=== PATIENT | male | born 1960 | race African-American/Black ===

== ENCOUNTER 2020-10-24 11:31 | Inpatient (IN) | payer OTHER ==
[2020-10-24 13:29] VITALS: BMI 27.3
[2020-10-24] MEDS ORDERED: ACETAMINOPHEN 325 MG TABLET (FP) PO PRN ×2 (13:30)
[2020-10-24] MEDS ORDERED: MAGNESIUM HYDROX 2400MG/30ML ORAL SUSPENSION 30 ML CUP PO PRN (13:30)
[2020-10-24] MEDS ORDERED: NICOTINE POLACRILEX 2 MG GUM BUC PRN (13:30)
[2020-10-24] MEDS ORDERED: ONDANSETRON *ODT* 4 MG TABLET SL PRN (13:30)
[2020-10-24] MEDS ORDERED: METHOCARBAMOL 500 MG TABLET PO PRN (13:30)
[2020-10-24] MEDS ORDERED: MENTHOL/PHENOL 1 EACH UD MM PRN (13:30)
[2020-10-24] MEDS ORDERED: MAGNESIUM CITRATE 300 ML BOTTLE PO PRN (13:30)
[2020-10-24] MEDS ORDERED: IBUPROFEN 400 MG TABLET (FP) PO PRN (13:30)
[2020-10-24] MEDS ORDERED: MAG HYDROX/AL HYDROX/SIMETH 30 ML UNIT-DOSE CUP PO PRN (13:30)
[2020-10-24 14:24] LABS: HEMATOCRIT 43.2 % (35.4-49); HEMOGLOBIN 14.1 GM/dL (11.7-16.9); MCHC 32.7 g/dl (32.0-35.9); MEAN CELL VOLUME 91.9 fl (80-96); MEAN PLT VOLUME 8.5 fl (7.5-11.1); PLATELET COUNT 248 K/MM3 (134-434); RDW 14.7 % (11.9-15.9); WHITE BLOOD COUNT 5.7 K/mm3 (4.0-10.0)
[2020-10-24 14:26] LABS: POTASSIUM 3.8 mmol/L (3.5-5.1)
[2020-10-24 14:32] LABS: CALCIUM 9.2 mg/dL (8.5-10.1); CREATININE 1.3 mg/dL (0.55-1.3)
[2020-10-24 14:33] LABS: BILIRUBIN,TOTAL 0.5 mg/dL (0.2-1); TOT PROT 7.6 g/dl (6.4-8.2)
[2020-10-24] MEDS: ASPIRIN COATED 81 MG TABLET.EC PO SCH (15:05)
[2020-10-24] MEDS: chlordiazePOXIDE HCL 25 MG CAPSULE PO PRN ×2 (15:06→20:03)
[2020-10-24] MEDS: hydrOXYzine PAMOATE 25 MG CAPSULE (FP) PO SCH ×3 (15:06→22:12)
[2020-10-24] MEDS: LOSARTAN POTASSIUM 25 MG TABLET PO SCH (15:07)
[2020-10-24] MEDS: chlordiazePOXIDE HCL 25 MG CAPSULE PO SCH ×2 (18:12→22:12)
[2020-10-24] MEDS ORDERED: MELATONIN 5 MG TABLETS PO SCH (22:00)
[2020-10-24] MEDS: FAMOTIDINE 10 MG TABLET PO SCH (22:12)
[2020-10-24] MEDS: ATORVASTATIN CA 80 MG TABLET (FP) PO SCH (22:12)
[2020-10-24] MEDS: THIAMINE HCL 100 MG TABLET (FP) PO SCH (22:12)
[2020-10-24] MEDS: METOPROLOL TARTRATE 25 MG TABLET (FP) PO SCH (22:13)
[2020-10-25] MEDS: chlordiazePOXIDE HCL 25 MG CAPSULE PO SCH ×5 (05:30→22:42)
[2020-10-25] MEDS: hydrOXYzine PAMOATE 25 MG CAPSULE (FP) PO SCH ×5 (05:30→22:42)
[2020-10-25] MEDS: CLOPIDOGREL BISULFATE 75 MG TABLET (FP) PO SCH (06:52)
[2020-10-25] MEDS: ASPIRIN COATED 81 MG TABLET.EC PO SCH (10:16)
[2020-10-25] MEDS: METOPROLOL TARTRATE 25 MG TABLET (FP) PO SCH ×2 (10:16→22:41)
[2020-10-25] MEDS: PRENATAL VITAMINS W/ FOLIC ACID TABLET (FP) PO SCH (10:16)
[2020-10-25] MEDS: LOSARTAN POTASSIUM 25 MG TABLET PO SCH (10:43)
[2020-10-25] MEDS: FAMOTIDINE 10 MG TABLET PO SCH ×2 (10:43→22:41)
[2020-10-25] MEDS: LIDOCAINE 5% TOPICAL PATCH TP SCH (10:44)
[2020-10-25] MEDS: POLYETHYLENE GLYCOL 3350 119 GM BTL PO SCH (19:43)
[2020-10-25] MEDS ORDERED: LIDOCAINE PATCH REMOVAL MC SCH (22:00)
[2020-10-25] MEDS ORDERED: SUVOREXANT 10 MG TABLET PO PRN (22:00)
[2020-10-25] MEDS: LIDOCAINE PATCH REMOVAL MC SCH (22:41)
[2020-10-25] MEDS: THIAMINE HCL 100 MG TABLET (FP) PO SCH (22:42)
[2020-10-25] MEDS: ATORVASTATIN CA 80 MG TABLET (FP) PO SCH (22:42)
[2020-10-26] MEDS: chlordiazePOXIDE HCL 25 MG CAPSULE PO SCH ×4 (05:05→22:28)
[2020-10-26] MEDS: hydrOXYzine PAMOATE 25 MG CAPSULE (FP) PO SCH ×5 (05:05→22:47)
[2020-10-26] MEDS: CLOPIDOGREL BISULFATE 75 MG TABLET (FP) PO SCH (06:11)
[2020-10-26] MEDS: METOPROLOL TARTRATE 25 MG TABLET (FP) PO SCH ×2 (10:03→22:28)
[2020-10-26] MEDS: LOSARTAN POTASSIUM 25 MG TABLET PO SCH (10:03)
[2020-10-26] MEDS: PRENATAL VITAMINS W/ FOLIC ACID TABLET (FP) PO SCH (10:03)
[2020-10-26] MEDS: FAMOTIDINE 10 MG TABLET PO SCH ×2 (10:03→22:29)
[2020-10-26] MEDS: ASPIRIN COATED 81 MG TABLET.EC PO SCH (10:03)
[2020-10-26] MEDS: LIDOCAINE 5% TOPICAL PATCH TP SCH (10:03)
[2020-10-26] MEDS: POLYETHYLENE GLYCOL 3350 119 GM BTL PO SCH (12:27)
[2020-10-26] MEDS: BISMUTH SUBSALICYLATE 524 MG/30 ML UD PO PRN (18:03)
[2020-10-26] MEDS: THIAMINE HCL 100 MG TABLET (FP) PO SCH (22:28)
[2020-10-26] MEDS: ATORVASTATIN CA 80 MG TABLET (FP) PO SCH (22:28)
[2020-10-26] MEDS: LIDOCAINE PATCH REMOVAL MC SCH (22:29)
[2020-10-27] MEDS ORDERED: chlordiazePOXIDE HCL 10 MG CAPSULE PO PRN
[2020-10-27] MEDS: chlordiazePOXIDE HCL 10 MG CAPSULE PO SCH ×2 (05:47→10:08)
[2020-10-27] MEDS: hydrOXYzine PAMOATE 25 MG CAPSULE (FP) PO SCH ×3 (05:48→13:03)
[2020-10-27] MEDS: BISMUTH SUBSALICYLATE 524 MG/30 ML UD PO PRN (05:52)
[2020-10-27] MEDS: CLOPIDOGREL BISULFATE 75 MG TABLET (FP) PO SCH (06:24)
[2020-10-27] MEDS: METOPROLOL TARTRATE 25 MG TABLET (FP) PO SCH (10:08)
[2020-10-27] MEDS: LIDOCAINE 5% TOPICAL PATCH TP SCH (10:09)
[2020-10-27] MEDS: PRENATAL VITAMINS W/ FOLIC ACID TABLET (FP) PO SCH (10:09)
[2020-10-27] MEDS: LOSARTAN POTASSIUM 25 MG TABLET PO SCH (10:09)
[2020-10-27] MEDS: FAMOTIDINE 10 MG TABLET PO SCH (10:09)
[2020-10-27] MEDS: ASPIRIN COATED 81 MG TABLET.EC PO SCH (10:09)
[2020-10-27 13:03] VITALS: BP 128/69; PULSE 64; TEMP 97.3
[2020-10-28] MEDS ORDERED: chlordiazePOXIDE HCL 10 MG CAPSULE PO SCH (05:00)
[2020-10-29] MEDS ORDERED: chlordiazePOXIDE HCL 10 MG CAPSULE PO ONE (05:00)
== END 2020-10-27 14:13 | disposition left against medical advice (07) | DRG 770 ==
LOC: YASAS 11:31 → Y6N 14:20
PROVIDERS: ADMIT Allergy & Immunology; ATTEND Allergy & Immunology
PROC: HZ2ZZZZ Detoxification Services for Substance Abuse Treatment (ICD-10-PCS; principal; 2020-10-24)
DX: F10.230 Alcohol dependence with withdrawal, uncomplicated (principal); F14.20 Cocaine dependence, uncomplicated; F12.20 Cannabis dependence, uncomplicated; F17.210 Nicotine dependence, cigarettes, uncomplicated; F25.9 Schizoaffective disorder, unspecified; F19.24 Other psychoactive substance dependence with psychoactive substance-induced mood disorder; F19.282 Other psychoactive substance dependence with psychoactive substance-induced sleep disorder; I10 Essential (primary) hypertension; I25.10 Atherosclerotic heart disease of native coronary artery without angina pectoris; I25.2 Old myocardial infarction; J43.9 Emphysema, unspecified; M17.11 Unilateral primary osteoarthritis, right knee; R79.89 Other specified abnormal findings of blood chemistry; R74.01 Elevation of levels of liver transaminase levels; K59.00 Constipation, unspecified; E78.5 Hyperlipidemia, unspecified; Z62.810 Personal history of physical and sexual abuse in childhood; Z86.73 Personal history of transient ischemic attack (TIA), and cerebral infarction without residual deficits; Z95.5 Presence of coronary angioplasty implant and graft
CPT/HCPCS: 36415; 71046-TC-FY; 80053; 85027; 86780; 93005; 93010; C9803; Q0162; U0003

== ENCOUNTER 2024-09-27 10:52 | Inpatient (IN) | payer OTHER ==
[2024-09-27 13:51] LABS: BASO % 1.2 % (0-2.0); HEMATOCRIT 44.9 % (35.4-49); HEMOGLOBIN 14.4 GM/dL (11.7-16.9); LYMPH % 38.9 % (8-40); MCH 29.8 pg (25.7-33.7); MCHC 32.1 g/dl (32.0-35.9); MEAN CELL VOLUME 92.8 fl (80-96); MEAN PLT VOLUME 7.3 fl (7.5-11.1); MONO % 15.5 % (3.8-10.2); NEUT % 42.4 % (42.8-82.8); PLATELET COUNT 259 10^3/uL (134-434); RBC 4.84 M/mm3 (4.00-5.60); RDW 16.5 % (11.9-15.9); WHITE BLOOD COUNT 7.6 K/mm3 (4.0-10.0)
[2024-09-27 14:16] LABS: POTASSIUM 4.1 mmol/L (3.5-5.1)
[2024-09-27 14:18] LABS: BLOOD UREA NITROGEN 33.6 mg/dL (7-18); CALCIUM 8.7 mg/dL (8.5-10.1)
[2024-09-27 14:22] LABS: CREATININE 1.4 mg/dL (0.55-1.3); MAGNESIUM 1.9 mg/dL (1.8-2.4)
[2024-09-27 14:23] LABS: BILIRUBIN,TOTAL 0.5 mg/dL (0.2-1); TOT PROT 6.4 g/dl (6.4-8.2)
[2024-09-27 14:27] LABS: ALBUMIN 2.7 g/dl (3.4-5.0)
[2024-09-27 14:30] LABS: N-TERMINAL BNP 5713.7 pg/ml (5-125)
[2024-09-27] MEDS ORDERED: FUROSEMIDE 40 MG/4 ML INJECTABLE VIAL ONE (14:31)
[2024-09-27] MEDS: FUROSEMIDE 40 MG/4 ML INJECTABLE VIAL IVPUSH ONE (14:37)
[2024-09-27] MEDS ORDERED: THIAMINE HCL 200 MG/2 ML VIAL ONE (14:54)
[2024-09-27] MEDS ORDERED: ASPIRIN 81 MG CHEWABLE TABLETS ONE (14:54)
[2024-09-27] MEDS: ASPIRIN 81 MG CHEWABLE TABLETS PO ONE (15:08)
[2024-09-27] MEDS: THIAMINE HCL 200 MG/2 ML VIAL IVPB ONE (15:08)
[2024-09-27] MEDS: NITROGLYCERIN SUBLINGUAL 1/150 0.4 MG TAB SL ONE (15:09)
[2024-09-27] MEDS ORDERED: LORazepam 1 MG TABLET PO PRN (16:26)
[2024-09-27] MEDS: NICOTINE POLACRILEX 2 MG GUM BUC PRN (18:28)
[2024-09-27 21:05] VITALS: BMI 26.3
[2024-09-27] MEDS: HEPARIN NA (PORCINE) 5,000 UNITS/ML 1ML VIAL SQ SCH (21:51)
[2024-09-27] MEDS: THIAMINE 100 MG TABLET PO SCH (21:52)
[2024-09-28] MEDS: LIDOCAINE 4% PATCH TP SCH (06:38)
[2024-09-28 08:12] LABS: BASO % 0.8 % (0-2.0); HEMATOCRIT 41.4 % (35.4-49); HEMOGLOBIN 13.3 GM/dL (11.7-16.9); LYMPH % 46.5 % (8-40); MCH 29.8 pg (25.7-33.7); MEAN PLT VOLUME 7.8 fl (7.5-11.1); MONO % 14.8 % (3.8-10.2); NEUT % 35.9 % (42.8-82.8); PLATELET COUNT 246 10^3/uL (134-434); RBC 4.46 M/mm3 (4.00-5.60); RDW 16.1 % (11.9-15.9)
[2024-09-28 08:28] LABS: POTASSIUM 4.2 mmol/L (3.5-5.1)
[2024-09-28 08:30] LABS: BLOOD UREA NITROGEN 29.4 mg/dL (7-18); CALCIUM 8.5 mg/dL (8.5-10.1)
[2024-09-28 08:34] LABS: CREATININE 1.4 mg/dL (0.55-1.3)
[2024-09-28] MEDS: metoPROLOL SUCCINATE 25 MG TAB.SR.24H (FP) PO SCH (10:47)
[2024-09-28] MEDS: FUROSEMIDE 40 MG/4 ML INJECTABLE VIAL IVPUSH SCH (10:50)
[2024-09-28] MEDS: ASPIRIN COATED 81 MG TABLET.EC PO SCH (10:50)
[2024-09-28] MEDS: CARVEDILOL 12.5 MG TABLET (FP) PO SCH (10:50)
[2024-09-28] MEDS ORDERED: ACETAMINOPHEN 1000 MG/100 ML BAG IVPB PRN (12:03)
[2024-09-28] MEDS ORDERED: LORazepam 1 MG TABLET PO PRN (12:58)
[2024-09-28] MEDS: LIDOCAINE 5% TOPICAL PATCH TP SCH (17:31)
[2024-09-28] MEDS ORDERED: LIDOCAINE PATCH REMOVAL MC SCH (22:00)
[2024-09-28] MEDS: LIDOCAINE PATCH REMOVAL MC SCH (22:15)
[2024-09-28 22:35] LABS: HIV INTERPRETATION NEGATIVE (NEGATIVE)
[2024-09-29] MEDS ORDERED: ACETAMINOPHEN 500 MG TABLET (FP) PO PRN (07:13)
[2024-09-29 07:14] LABS: HEMATOCRIT 40.1 % (35.4-49); HEMOGLOBIN 12.9 GM/dL (11.7-16.9); MCH 29.8 pg (25.7-33.7); MCHC 32.2 g/dl (32.0-35.9); MEAN CELL VOLUME 92.5 fl (80-96); MEAN PLT VOLUME 7.5 fl (7.5-11.1); PLATELET COUNT 219 10^3/uL (134-434); RBC 4.33 M/mm3 (4.00-5.60); RDW 15.8 % (11.9-15.9); WHITE BLOOD COUNT 6.5 K/mm3 (4.0-10.0)
[2024-09-29 07:23] LABS: POTASSIUM 4.2 mmol/L (3.5-5.1)
[2024-09-29 07:32] LABS: ALBUMIN 2.4 g/dl (3.4-5.0)
[2024-09-29 07:33] LABS: BLOOD UREA NITROGEN 33.2 mg/dL (7-18); CALCIUM 8.6 mg/dL (8.5-10.1); MAGNESIUM 1.7 mg/dL (1.8-2.4)
[2024-09-29 07:37] LABS: BILIRUBIN,TOTAL 0.5 mg/dL (0.2-1); CREATININE 1.3 mg/dL (0.55-1.3); TOT PROT 5.5 g/dl (6.4-8.2)
[2024-09-29] MEDS: LIDOCAINE 5% TOPICAL PATCH TP SCH (09:46)
[2024-09-29] MEDS: KETOROLAC TROMETHAMINE 15 MG/ML VIAL IVPUSH ONE (12:51)
[2024-09-29 15:29] VITALS: BP 134/76; PULSE 86; RESP 18; TEMP 98.6
[2024-09-29] MEDS ORDERED: SACUBITRIL/VALSARTAN 24 MG-26 MG TABLET PO SCH (22:00)
[2024-09-30] MEDS ORDERED: EMPAGLIFLOZIN (JARDIANCE) 10 MG TABLET PO SCH (10:00)
== END 2024-09-29 17:19 | disposition left against medical advice (07) | DRG 194 ==
LOC: JER 10:52 → JERBED 17:10 → J4W 18:42
PROVIDERS: ADMIT Internal Medicine; ATTEND Internal Medicine
DX: I11.0 Hypertensive heart disease with heart failure (principal); I50.23 Acute on chronic systolic (congestive) heart failure; F25.9 Schizoaffective disorder, unspecified; F14.20 Cocaine dependence, uncomplicated; I69.351 Hemiplegia and hemiparesis following cerebral infarction affecting right dominant side; I25.10 Atherosclerotic heart disease of native coronary artery without angina pectoris; I25.2 Old myocardial infarction; F10.230 Alcohol dependence with withdrawal, uncomplicated; Z59.00 Homelessness unspecified
CPT/HCPCS: 0241U-QW; 36415; 71045-TC-FY; 80048; 80053; 80061; 80305; 82962; 83735; 83880; 84100; 84484; 85025; 85027; 86704; 86705; 86803; 87340; 87389; 87517; 93005; 93010; 93306-TC; 99285-25; J1644